=== PATIENT | male | born 1985 | race Two or more races ===

== ENCOUNTER 2024-05-31 20:27 | Emergency (ER) | payer MEDICAID ==
[~2024-05-31] VITALS: Ht 165.1 cm; Wt 77.0 kg
[2024-05-31] MEDS ORDERED: FLUORESCEIN SODIUM 1 MG STRIP ONE (23:05)
[2024-05-31] MEDS ORDERED: MOXI3DRO25 OD (23:26)
[2024-05-31] MEDS: ACETAMINOPHEN 500 MG TABLET PO ONE (23:44)
[2024-05-31] MEDS: PERTUSS(ACELL),DIPH,TET/PF 0.5 ML SYRINGE [ADULT] IM. ONE (23:45)
[2024-06-01] MEDS: PROPARACAINE HCL 0.5% 15 ML OPHTHALMIC SOLUTION OD ONE (00:12)
[2024-06-01 00:13] VITALS: BP 128/67; PULSE 68; RESP 16; TEMP 98.3
== END 2024-06-01 00:38 | disposition home or self-care (01) ==
LOC: EMS 20:27
DX: S05.01XA Injury of conjunctiva and corneal abrasion without foreign body, right eye, initial encounter (principal); W45.8XXA Other foreign body or object entering through skin, initial encounter; Y93.89 Activity, other specified; Y92.89 Other specified places as the place of occurrence of the external cause; Y99.8 Other external cause status
CPT/HCPCS: 90471; 90715; 99283